=== PATIENT | male | born 1975 | race Caucasian/White ===

== ENCOUNTER → 2017-04-08 | Outpatient (CLI) | payer BC ==
[2016-07-14 07:00] VITALS: BP 117/68
[~2017-04-08] MED LIST: HYDR-2758 PO; HYOS0.1265 SL; KETO10TA PO; LEVO500T8 PO; ONDA4TAB7 PO; OXYB10TA PO; OXYC-323 PO; PHEN-444 PO; TAMS0.4C97 PO
--- NOTE | 2017-04-12 22:06 | SLEEP ---
DATE OF STUDY: 04/08/2017 ATTENDING PHYSICIAN: Dr. Elfego Brown. The patient is a 41-year-old who weighs 245 pounds with a BMI of 37.2. The patient's [place] score was 15. Home sleep study was performed by [facility]. The total recording time was 263 minutes. During the night study, the patient had no central apneas. There were 5 obstructive, and 40 mixed apneas. There were 11 hypopneas. The patient's apnea-hypopnea index was 12.7 per hour. Supine index 24 per hour. Review of nocturnal oximetry study revealed an average oxygen saturation of 92% with the lowest of 72%. Seventeen minutes were spent in oxygen saturation less than 90%. Mean heart rate was 75 beats per minute. IMPRESSION: 1. Mild sleep apnea-hypopnea syndrome with moderate increase during supine sleep. 2. Nocturnal hypoxia secondary to obstructive sleep apnea. RECOMMENDATIONS: 1. The patient is clinically symptomatic. I would recommend treating patient's sleep apnea with either an oral appliance or a trial of CPAP titration. 2. If patient undergoes CPAP titration, then he should be followed up in 4-6 weeks to assess compliance with CPAP and to document clinical improvement. 3. Avoid supine sleep. 4. Weight loss is advised. 5. Caution regarding driving until the patient's hypersomnia is resolved with the above recommendation. KINDRA PEDRAZA MD DR: ADRI/teresa JOB#: [id number] / [id number] Dr. Elfego Noel
== END | disposition home or self-care (01) ==
LOC: RT 08:23
PROVIDERS: ATTEND Family Medicine
DX: G47.33 Obstructive sleep apnea (adult) (pediatric) (principal); J34.2 Deviated nasal septum; R06.83 Snoring
CPT/HCPCS: G0399

== ENCOUNTER → 2017-06-16 | Outpatient (CLI) | payer BC ==
[2016-07-14 07:00] VITALS: BP 117/68
[~2017-06-16] MED LIST changes: +ZOLPIDEM 5 MG TABLET. PO ONE
--- NOTE | 2017-06-17 18:28 | SLEEP ---
DATE OF STUDY: 06/16/2017 SLEEP STUDY ATTENDING PHYSICIAN: Dr. Elfego Brown. The patient is 41 years old, who weighs 245 pounds with a BMI of 36. The patient returned to the sleep lab for CPAP titration. Results of the diagnostic study were not available. During the night study, the patient spent 76 minutes in bed and slept for 19 minutes with a poor sleep efficiency of only 25%. Sleep latency was 4 minutes with absent REM sleep. Overall, sleep architecture showed increased stage I sleep, which was 95% of the total sleep time with significant reduced stage II sleep, absent slow wave and absent REM sleep. The patient was started on CPAP at 5 cm of water and titrated to 7 cm of water. The patient complained of anxiety due to the monitors and had difficulty in continuing sleep. The patient felt that he had a panic/anxiety attack after 1 hour of sleep. The patient had CPAP for 15 minutes. The patient had no supine or REM sleep. AHI was 0 per hour during that time. Oxygen saturations remained above 90%. The patient had PLMS at an index of 120 per hour and 32 per hour caused EEG arousals. The patient used a medium size full face mask. It is difficult to determine the final pressure, but an auto CPAP would be very reasonable. IMPRESSION: 1. Sleep apnea diagnosed previously. 2. Severe sleep maintenance insomnia with reduced sleep efficiency of 25%, could be related to sleeping in the lab. 3. Periodic limb movements during sleep.. RECOMMENDATIONS: 1. I would recommend that patient should be placed on auto CPAP at a minimum pressure of 7 cm of water and a maximum pressure of 10 cm of water. The patient should have a followup download data in 30 days and any necessary adjustments on the CPAP pressure can be made at that time. 2. Weight loss is advised. 3. Avoid [employer] depressants. 4. The patient should be evaluated for restless legs during the day. KINDRA PEDRAZA MD DR: ADRI/teresa JOB#: [id number] / [id number] Dr. Elfego Noel
== END | disposition home or self-care (01) ==
LOC: RT 18:35
PROVIDERS: ATTEND Family Medicine
DX: Z53.8 Procedure and treatment not carried out for other reasons (principal)